=== PATIENT | female | born 1950 | race Hispanic/Latino ===

== ENCOUNTER 2018-05-20 13:45 | Emergency (ER) | payer MEDICARE ==
--- NOTE | 2018-05-20 14:01 | Emergency Department Report ---
Blank Doc - Documentation Documentation: 68 yo female here with left sided abdominal pain and left hip pain x1 week. Seen by CORE STRIPPER at PCP office. Still with pain. Pain 8/10. No urinary symptoms. PE: EXT-no swelling. walks with limp ABD-non acute abdomen his initial assessment diagnostic orders/clinical plan/treatment (s) is/Are subject change based on patient's health status, clinical progression and re- assessment by fellow clinical providers in the ED. Further treatment and work-up at subsequent clinical providers discetion. Patient/guardians urged not to elope from s their condition may be serious if not clinically assessed and managed. Inital order include:Labs, xray
[2018-05-20 14:33] LABS: Basophils # (Auto) 0.1 K/mm3 (0.0-0.1); Basophils % (Auto) 0.7 % (0.0-1.8); Eosinophils # (Auto) 0.2 K/mm3 (0.0-0.4); Eosinophils % (Auto) 2.8 % (0.0-4.3); Hematocrit 33.2 % (30.3-42.9); Hemoglobin 10.8 gm/dl (10.1-14.3); Lymphocytes # (Auto) 0.9 K/mm3 (1.2-5.4); Lymphocytes % (Auto) 10.6 % (13.4-35.0); Mean Corpuscular HGB Conc 33 % (30-34); Mean Corpuscular Volume 77 fl (79-97); Monocytes # (Auto) 0.6 K/mm3 (0.0-0.8); Monocytes % (Auto) 6.5 % (0.0-7.3); Platelet Count 305 K/mm3 (140-440); Red Blood Count 4.31 M/mm3 (3.65-5.03); Red Cell Distribution Width 17.1 % (13.2-15.2)
[2018-05-20 15:20] LABS: Bacteria,Urine 2+ /HPF (Negative); Bilirubin,Urine NEG (Negative); Blood,Urine NEG (Negative); Color,Urine Amber (Yellow); Mucus,Urine FEW /HPF
--- NOTE | 2018-05-20 19:21 | Emergency Department Report ---
ED General Adult HPI - General Chief complaint: Abdominal Pain Stated complaint: HIP AND ABD PAIN Time Seen by Provider: 05/20/18 14:01 Source: patient Mode of arrival: Ambulatory Limitations: No Limitations - History of Present Illness Initial comments: 68-year-old female who is much department complaining of a two-day history of a left hip pain, worse with palpation and certain range of motion. No numbness or tingling is appreciated. No loss of bowel or bladder. No dysuria. Has had subsequent episodes of constipation. Also, last week, which she did take a laxity of the upper bowel movement. States that she's also been constipated, but again would like that evaluated as well. She denies any trauma. Physical to her primary care care doctor this last , but he was out of town and she saw nurse practitioner. Labs were taken. An urinalysis was obtained. She does not know what the results were. -: Gradual Radiation: non-radiation Severity scale (0 -10): 8 Quality: aching Consistency: constant Improves with: none Worsens with: none - Related Data Previous Rx's Medication Instructions Recorded Last Taken Type Lactulose [Cephulac] 20 gm PO Q6HR #360 ml 05/20/18 Unknown Rx Meloxicam [Mobic] 15 mg PO DAILY #7 tablet 05/20/18 Unknown Rx Allergies Allergy/AdvReac Type Severity Reaction Status Date / Time DUNG Inhibitors AdvReac Anaphylaxis Verified 05/20/18 14:02 ED Review of Systems ROS: Stated complaint: HIP AND ABD PAIN Other details as noted in HPI Constitutional: denies: chills, fever Eyes: denies: eye pain, eye discharge, vision change ENT: denies: ear pain, throat pain Respiratory: denies: cough, shortness of breath, wheezing Cardiovascular: denies: chest pain, palpitations Endocrine: no symptoms reported Gastrointestinal: denies: abdominal pain, nausea, diarrhea Genitourinary: denies: urgency, dysuria, discharge Musculoskeletal: denies: back pain, joint swelling, arthralgia Skin: denies: rash, lesions Neurological: denies: headache, weakness, paresthesias Psychiatric: denies: anxiety, depression Hematological/Lymphatic: denies: easy bleeding, easy bruising ED Past Medical Hx - Past Medical History Hx Hypertension: Yes Hx Diabetes: Yes Additional medical history: high cholesterol - Surgical History Additional Surgical History: tubal ligation - Social History Smoking Status: Never Smoker Substance Use Type: None - Medications Home Medications: Home Medications Medication Instructions Recorded Confirmed Last Taken Type Lactulose [Cephulac] 20 gm PO Q6HR #360 ml 05/20/18 Unknown Rx Meloxicam [Mobic] 15 mg PO DAILY #7 tablet 05/20/18 Unknown Rx ED Physical Exam - General Limitations: No Limitations General appearance: alert, in no apparent distress - Head Head exam: Present: atraumatic, normocephalic - Eye Eye exam: Present: normal appearance, PERRL, EOMI Pupils: Present: normal accommodation - ENT ENT exam: Present: normal exam, normal orophraynx, mucous membranes moist, TM's normal bilaterally - Neck Neck exam: Present: normal inspection, full ROM - Respiratory Respiratory exam: Present: normal lung sounds bilaterally. Absent: respiratory distress - Cardiovascular Cardiovascular Exam: Present: regular rate, normal rhythm. Absent: bradycardia, tachycardia, systolic murmur, diastolic murmur, rubs, gallop - GI/Abdominal GI/Abdominal exam: Present: soft, normal bowel sounds. Absent: tenderness, guarding, hyperactive bowel sounds, hypoactive bowel sounds, organomegaly - Extremities Exam Extremities exam: Present: normal inspection, full ROM, tenderness (back tenderness to the left hip with palpation along the greater trochanteric region and and the sacroiliac joint. There is full range of motion of the hip. Normal strength. No bruising is appreciated. Pulses 2+ to the left leg.), normal capillary refill - Back Exam Back exam: Present: normal inspection, full ROM. Absent: tenderness - Neurological Exam Neurological exam: Present: alert, oriented X3, CN II-XII intact. Absent: normal gait, abnormal gait - Psychiatric Psychiatric exam: Present: normal affect, normal mood - Skin Skin exam: Present: warm, dry, intact, normal color. Absent: rash ED Course Vital Signs 05/20/18 05/20/18 13:59 21:28 Temperature 97.6 F 98.5 F Pulse Rate 86 72 Respiratory 16 18 Rate Blood Pressure 122/69 Blood Pressure 111/73 [Right] O2 Sat by Pulse 95 94 Oximetry ED Medical Decision Making - Lab Data Result diagrams: 05/20/18 14:15 05/20/18 14:15 Critical care attestation.: If time is entered above; I have spent that time in minutes in the direct care of this critically ill patient, excluding procedure time. ED Disposition Clinical Impression: Constipation, Left hip pain Disposition: TO HOME OR SELFCARE Is pt being admited?: No Does the pt Need Aspirin: No Condition: Stable Instructions: Constipation (ED), High Fiber Diet (ED), Arthralgia (ED) Additional Instructions: Please follow which her PCP, Dr. Valle as we discussed Prescriptions: Lactulose [Cephulac] 20 gm PO Q6HR #360 ml Meloxicam [Mobic] 15 mg PO DAILY #7 tablet Referrals: ROSETTA VALLE MD [Primary Care Provider] - 3-5 Days
[2018-05-20 21:30] VITALS: BP 111/73
--- NOTE | 2018-05-20 23:20 | XRay Report ---
XR HIP 2-3V LT CLINICAL INDICATION: Female, 68 years of age. hip pain COMPARISON: None. FINDINGS: 2 views of the left hip obtained. Pelvic ring is intact. Mild degenerative changes of bilat eral hips. Hypertrophic spurring along the left greater trochanter compatible with anesthesiology. SI joints are preserved. No acute fracture or dislocation of the left hip. IMPRESSION: No acute bony findings. Mild degenerative changes of the left hip. This document is electronically signed by Fabrice Adam DO., May 20 2018 07:58:05 PM ET
--- NOTE | 2018-05-20 23:20 | XRay Report ---
XR ABDOMEN 1V AP CLINICAL INDICATION: Female, 68 years of age. constipation COMPARISON: None available. FINDINGS: AP views of the abdomen obtained. Patient slightly rotated to the right. Moderate stool in the colon. Nonobstructive bowel gas pattern. There are a few pelvic levels. Calcifications left upper abdomen may be vascular in origin. There appear to be separate from the left renal shadow. IMPRESSION: Moderate stool in the colon. Nonobstructive bowel gas pattern. This document is electronically signed by Fabrice Adam DO., May 20 2018 07:56:26 PM ET
== END 2018-05-20 21:30 | disposition home or self-care (01) ==
LOC: ED 13:45
DX: M25.552 Pain in left hip (principal); I10 Essential (primary) hypertension; E11.9 Type 2 diabetes mellitus without complications; E78.00 Pure hypercholesterolemia, unspecified; Z98.51 Tubal ligation status; Z88.8 Allergy status to other drugs, medicaments and biological substances
CPT/HCPCS: 36415; 74018; 80048; 81001; 85025; 99284

== ENCOUNTER 2020-12-27 15:14 | Emergency (ER) | payer MEDICARE ==
[2020-12-27 15:54] VITALS: BP 175/76
[2020-12-27] MEDS ORDERED: HYDROcodone/ACETAMINOPHEN 5-325 MG TAB PO ONE (16:07)
--- NOTE | 2020-12-27 16:12 | Emergency Department Report ---
ED Upper Extremity Inj HPI - General Chief Complaint: Extremity Injury, Upper Stated Complaint: ELBOW INJURY Time Seen by Provider: 12/27/20 16:01 Source: patient Mode of arrival: Ambulatory Limitations: No Limitations - History of Present Illness Initial Comments: Patient is a 70-year-old female presents emergency room planes of a fall that occurred a couple hours prior to arrival. Patient states that she took her grandchildren to a [place]. He states it had previously been radiating so it was muddy out. She states that this caused her to slip and fall and she fell on outstretched right hand. States she then felt a popping sensation in her right elbow. She states since the incident she has had right elbow pain and swelling. She denies ever injuring this arm in the past. She denies any numbness or weakness. She has a past medical history of hypertension, DM, HLD. Allergy to DUNG inhibitors. - Related Data Previous Rx's Medication Instructions Recorded Last Taken Type Lactulose [Cephulac] 20 gm PO Q6HR #360 ml 05/20/18 Unknown Rx Meloxicam [Mobic] 15 mg PO DAILY #7 tablet 05/20/18 Unknown Rx HYDROcodone/APAP 5-325 [[place] 1 each PO Q6HR PRN #12 tablet 12/27/20 Unknown Rx 5/325] Ibuprofen [Motrin 600 MG tab] 600 mg PO Q8H PRN #10 tablet 12/27/20 Unknown Rx Allergies Allergy/AdvReac Type Severity Reaction Status Date / Time DUNG Inhibitors AdvReac Anaphylaxis Verified 05/20/18 14:02 ED Review of Systems ROS: Stated complaint: ELBOW INJURY Other details as noted in HPI Comment: All other systems reviewed and negative ED Past Medical Hx - Past Medical History Previous Medical History?: Yes Hx Hypertension: Yes Hx Diabetes: Yes Additional medical history: high cholesterol - Surgical History Past Surgical History?: Yes Additional Surgical History: tubal ligation - Social History Smoking Status: Never Smoker Substance Use Type: None - Medications Home Medications: Home Medications Medication Instructions Recorded Confirmed Last Taken Type Lactulose [Cephulac] 20 gm PO Q6HR #360 ml 05/20/18 Unknown Rx Meloxicam [Mobic] 15 mg PO DAILY #7 tablet 05/20/18 Unknown Rx HYDROcodone/APAP 5-325 [[place] 1 each PO Q6HR PRN #12 tablet 12/27/20 Unknown Rx 5/325] Ibuprofen [Motrin 600 MG tab] 600 mg PO Q8H PRN #10 tablet 12/27/20 Unknown Rx ED Physical Exam - General Limitations: No Limitations General appearance: alert, in no apparent distress - Head Head exam: Present: atraumatic, normocephalic - Eye Eye exam: Present: normal appearance - ENT ENT exam: Present: mucous membranes moist - Extremities Exam Extremities exam: Present: other (ttp and edema present to posterior right elbow, decreased ROM of the right elbow secondary to pain, no ttp to the right shoulder, wrist, hand or digits, neurovascularly intact) - Neurological Exam Neurological exam: Present: alert, oriented X3 - Psychiatric Psychiatric exam: Present: normal affect, normal mood - Skin Skin exam: Present: warm, dry, intact ED Course Vital Signs 12/27/20 12/27/20 15:51 16:30 Temperature 98.8 F Pulse Rate 78 Respiratory 16 20 Rate Blood Pressure 175/76 [Left] O2 Sat by Pulse 98 Oximetry ED Medical Decision Making - Radiology Data Radiology results: report reviewed Ordering Physician: JC HICKEY Date of Service: 12/27/20 Procedure(s): XR elbow 3+V RT Accession Number(s): [id number] cc: JC HICKEY Fluoro Time In Minutes: XR elbow 3+V RT INDICATION / CLINICAL INFORMATION: right elbow pop after fall on outstretched hand. COMPARISON: None available. FINDINGS: BONES/JOINT(S): There is a mildly displaced olecranon fracture. No significant degenerative changes. SOFT TISSUES: No significant abnormality. ADDITIONAL FINDINGS: None. Signer Name: Vazquez Briggs MD Signed: 12/27/2020 4:38 PM Workstation Name: [id number] Transcribed By: KATHY Dictated By: Vazquez Briggs MD Electronically Authenticated By: Vazquez Briggs MD Signed Date/Time: 12/27/201637 DD/ 37 TD/TT: - Medical Decision Making Patient is a 70-year-old female presents emergency room planes of a fall that occurred a couple hours prior to arrival. Patient states that she took her grandchildren to a [employer]. He states it had previously been radiating so it was muddy out. She states that this caused her to slip and fall and she fell on outstretched right hand. States she then felt a popping sensation in her right elbow. She states since the incident she has had right elbow pain and swelling. She denies ever injuring this arm in the past. She denies any numbness or weakness. She has a past medical history of hypertension, DM, HLD. Allergy to DUNG inhibitors. Vitals are stable. On exam:ttp and edema present to posterior right elbow, decreased ROM of the right elbow secondary to pain, no ttp to the right shoulder, wrist, hand or digits, neurovascularly intact. XR right elbow: BONES/JOINT(S): There is a mildly displaced olecranon fracture. No significant degenerative changes. SOFT TISSUES: No significant abnormality. ADDITIONAL FINDINGS: None. Discussed all findings with patient and the importance of outpatient orthopedic follow-up. Patient placed in long-arm posterior splint and given sling and remained neurovascularly intact. Patient given prescription for medications. Advised patient Please take medication as prescribed. Follow-up with orthopedic doctor. Return to emergency room for any new or worsening symptoms. Critical care attestation.: If time is entered above; I have spent that time in minutes in the direct care of this critically ill patient, excluding procedure time. ED Disposition Clinical Impression: Olecranon fracture Qualifiers: Encounter type: initial encounter Fracture type: closed Laterality: right Qualified Code(s): S52.021A - Displaced fracture of olecranon process without intraarticular extension of right ulna, initial encounter for closed fracture Disposition: 01 HOME / SELF CARE / HOMELESS Is pt being admited?: No Does the pt Need Aspirin: No Condition: Stable Instructions: Olecranon Fracture Additional Instructions: Please take medication as prescribed. Follow-up with orthopedic doctor. Return to emergency room for any new or worsening symptoms. Prescriptions: Ibuprofen [Motrin 600 MG tab] 600 mg PO Q8H PRN #10 tablet PRN Reason: Pain, Moderate (4-6) HYDROcodone/APAP 5-325 [[place] 5/325] 1 each PO Q6HR PRN #12 tablet PRN Reason: Pain , Severe (7-10) Referrals: ADAM ALLAN MD [Staff Physician] - 3-5 Days [facility] [Provider Group] - 3-5 Days Time of Disposition: 16:48 Print Language: CANADIAN
--- NOTE | 2020-12-27 16:43 | XRay Report ---
XR elbow 3+V RT INDICATION / CLINICAL INFORMATION: right elbow pop after fall on outstretched hand. COMPARISON: None available. FINDINGS: BONES/JOINT(S): There is a mildly displaced olecranon fracture. No significant degenerative changes. SOFT TISSUES: No significant abnormality. ADDITIONAL FINDINGS: None. Signer Name: Vazquez Briggs MD Signed: 12/27/2020 4:38 PM Workstation Name: [id number]
== END 2020-12-27 17:45 | disposition home or self-care (01) ==
LOC: ED 15:14
DX: S52.021A Displaced fracture of olecranon process without intraarticular extension of right ulna, initial encounter for closed fracture (principal); I10 Essential (primary) hypertension; E11.8 Type 2 diabetes mellitus with unspecified complications; E78.00 Pure hypercholesterolemia, unspecified; Z98.890 Other specified postprocedural states; Z88.8 Allergy status to other drugs, medicaments and biological substances; W19.XXXA Unspecified fall, initial encounter; Y93.89 Activity, other specified; Y92.89 Other specified places as the place of occurrence of the external cause; Y99.8 Other external cause status
CPT/HCPCS: 99283